=== PATIENT | female | born 1950 | race Asian ===

== ENCOUNTER 2022-01-12 11:14 | Emergency (ER) | payer OTHER ==
[2022-01-12 11:24] VITALS: BP 148/90; PULSE 76; RESP 18; TEMP 97.8; BMI 23.1
[2022-01-12 13:08] LABS: HEMOGLOBIN 13.7 GM/dL (10.7-15.3); LYMPH % 23.7 % (8-40); MCHC 33.5 g/dl (32.0-36.0); MEAN CELL VOLUME 92.4 fl (80-96); MEAN PLT VOLUME 7.7 fl (7.5-11.1); MONO % 6.4 % (3.8-10.2); NEUT % 61.9 % (42.8-82.8); PLATELET COUNT 392 10^3/uL (134-434); RBC 4.43 M/mm3 (3.60-5.2); RDW 14.3 % (11.6-15.6); WHITE BLOOD COUNT 4.7 K/mm3 (4.0-10.0)
[2022-01-12 13:27] LABS: CHLORIDE 98 mmol/L (98-107); SODIUM 140 mmol/L (136-145)
[2022-01-12 13:33] LABS: ALBUMIN 3.7 g/dl (3.4-5.0); ANION GAP 11 MMOL/L (8-16); BLOOD UREA NITROGEN 22.4 mg/dL (7-18); CO2 32 mmol/L (21-32); GLUCOSE,RANDOM 93 mg/dL (74-106)
[2022-01-12 13:36] LABS: CREATININE 0.7 mg/dL (0.55-1.3); PHOSPHOROUS 5.3 mg/dL (2.5-4.9); SGOT/AST 59 U/L (15-37); SGPT/ALT 93 U/L (13-61)
[2022-01-12 13:38] LABS: BILIRUBIN,TOTAL 1.1 mg/dL (0.2-1); TOT PROT 7.2 g/dl (6.4-8.2)
[2022-01-12 13:39] LABS: ALK PHOS 149 U/L (45-117)
[2022-01-12 13:48] LABS: CALCIUM 6.5 mg/dL (8.5-10.1)
[2022-01-12] MEDS ORDERED: POTASSIUM CHLORIDE TABS 20 MEQ TABLET.ER (FP) PO ONE ×2 (13:51→14:05)
[2022-01-12] MEDS ORDERED: CALCIUM GLUCONATE 10% - 1,000 MG/10 ML VIAL IVPUSH ONE (13:52)
[2022-01-12] MEDS ORDERED: CALCIUM GLUCONATE 10% - 1,000 MG/10 ML VIAL ONE (14:05)
== END 2022-01-12 16:41 | disposition home or self-care (01) ==
LOC: JER 11:14
PROC: 3E033GC Introduction of Other Therapeutic Substance into Peripheral Vein, Percutaneous Approach (ICD-10-PCS; principal; 2022-01-12)
DX: E87.6 Hypokalemia (principal); E83.39 Other disorders of phosphorus metabolism
CPT/HCPCS: 36415; 80053; 83735; 84100; 84443; 85025; 93005; 93010; 99284-25